=== PATIENT | female | born 1945 | race Caucasian/White ===

== ENCOUNTER 2024-04-13 19:00 | Emergency (ER) | payer MEDICARE, OTHER ==
[2024-04-13] MEDS: Lidocaine 1% with EPINEPHrine 1:100,000 20 ML MDV INJECT ONE (20:00)
[2024-04-13] MEDS: Amoxicillin 500 MG Cap PO ONE (20:36)
[2024-04-13] MEDS: Diphtheria,Pertussis(Acell),Tetanus Vaccine 0.5 ML Syringe IM ONE (20:40)
== END 2024-04-13 20:53 | disposition home or self-care (01) ==
LOC: KA.ED 19:00
DX: S60.450A Superficial foreign body of right index finger, initial encounter (principal); Z23 Encounter for immunization; W45.8XXA Other foreign body or object entering through skin, initial encounter
CPT/HCPCS: 90471; 90715; 99283-25; A9270-GY; J3490